=== PATIENT | female | born 1940 | race Caucasian/White ===

== ENCOUNTER → 2023-04-22 08:17 | Outpatient (REF) | payer MEDICARE, OTHER, SELFPAY ==
[2023-04-22 09:18] LABS: ALT (SGPT) 19 U/L (0-35); AST (SGOT) 31 U/L (14-36); Albumin 4.1 g/dl (3.5-5.0); Alkaline Phosphatase 58 U/L (38-126); Blood Urea Nitrogen 21 mg/dl (7-17); Calcium 9.6 mg/dl (8.4-10.2); Carbon Dioxide 31 mmol/L (22-30); Chloride 102 mmol/L (98-107); Glucose 97 mg/dl (70-99); HDL Cholesterol 60 mg/dl; LDL Cholesterol, Calculated 98 mg/dl; Potassium 4.4 mmol/L (3.5-5.1); Sodium 140 mmol/L (135-145); Total Bilirubin 0.7 mg/dl (0.2-1.3); Total Cholesterol 179 mg/dl (50-199); Total Protein 6.6 g/dl (6.3-8.2); Triglyceride 108 mg/dl (10-149); Very Low Density Lipoprotein 21 mg/dl (0-30); eGFR > 60.00
[2023-04-22 09:34] LABS: Vitamin D, 25-OH*** 121 ng/mL (30-80)
[2023-04-24 11:08] LABS: Creatine Phosphokinase 69 U/L (30-135)
== END ==
LOC: REG 08:17
PROVIDERS: ATTENDING PHYSICIAN Internal Medicine Geriatric Medicine
DX: E78.2 Mixed hyperlipidemia (principal); I10 Essential (primary) hypertension; Z00.00 Encounter for general adult medical examination without abnormal findings; Z13.31 Encounter for screening for depression
CPT/HCPCS: 36415; 80053; 80061; 82306; 82550

== ENCOUNTER → 2024-06-06 14:23 | Outpatient (REF) | payer MEDICARE, OTHER, SELFPAY | LOC: RAD 14:23 | PROVIDERS: ATTENDING PHYSICIAN Nurse Practitioner Primary Care; FAMILY PHYSICIAN Internal Medicine Geriatric Medicine | DX: M54.16 Radiculopathy, lumbar region (principal) | CPT/HCPCS: 72110 ==

== ENCOUNTER → 2024-07-04 08:39 | Outpatient (REF) | payer MEDICARE, OTHER, SELFPAY ==
[2024-07-04 09:34] LABS: % Basophils 0.7 % (0-2); % Eosinophils 1.3 % (0-6); % Immature Granulocytes 0.2 % (0-0.5); % Lymphocytes 39.6 % (20.5-51.1); % Monocytes 8.8 % (1.7-9.3); % Neutrophils 49.4 % (42.2-75.2); Absolute Eosinophils 0.1 10^3/uL (0-0.7); Absolute Lymphocytes 1.8 10^3/uL (1.2-3.4); Absolute Monocytes 0.4 10^3/uL (0.1-0.6); Absolute Neutrophils 2.2 10^3/uL (1.4-6.5); Hemoglobin 10.6 g/dL (12.0-16.0); Mean Corp Hgb Conc. 31.2 g/dL (33.0-37.0); Mean Corpuscular Hgb 19.7 pg (27.0-31.0); Mean Corpuscular Volume 63.3 fL (81.0-99.0); Mean Platelet Volume 9.2 fL (7.4-10.4); Nucleated Red Blood Cells % 0 %; Platelet Count 380 10^3/uL (130-400); Red Blood Cell Count 5.37 10^6/uL (4.20-5.40); Red Cell Dist. Width 17.9 % (11.5-14.5); White Blood Cell Count 4.5 10^3/uL (4.8-10.8)
[2024-07-04 11:23] LABS: ALT (SGPT) 39 U/L (0-35); AST (SGOT) 37 U/L (14-36); Albumin 4.3 g/dl (3.5-5.0); Alkaline Phosphatase 72 U/L (38-126); Blood Urea Nitrogen 15 mg/dl (7-17); Calcium 9.6 mg/dl (8.4-10.2); Carbon Dioxide 30 mmol/L (22-30); Chloride 102 mmol/L (98-107); Glucose 75 mg/dl (70-99); HDL Cholesterol 61 mg/dl; LDL Cholesterol, Calculated 111 mg/dl; Potassium 4.7 mmol/L (3.5-5.1); Sodium 139 mmol/L (135-145); Total Bilirubin 0.9 mg/dl (0.2-1.3); Total Cholesterol 196 mg/dl (50-199); Total Protein 6.9 g/dl (6.3-8.2); Triglyceride 123 mg/dl (10-149); Very Low Density Lipoprotein 24 mg/dl (0-30); eGFR > 60.00
[2024-07-04 12:59] LABS: Urine Albumin Negative (Neg - Trace); Urine Bilirubin Negative (Negative); Urine Character Clear (Clear); Urine Color Yellow; Urine Glucose Negative (Negative); Urine Ketone Negative (Negative); Urine Leukocyte Negative (Negative); Urine Nitrite Negative (Negative); Urine Occult Blood Negative (Negative); Urine Urobilinogen Negative (Neg - 1+)
== END ==
LOC: REG 08:39
PROVIDERS: ATTENDING PHYSICIAN Nurse Practitioner Primary Care; FAMILY PHYSICIAN Internal Medicine Geriatric Medicine
DX: K59.09 Other constipation (principal); Z00.00 Encounter for general adult medical examination without abnormal findings; E78.2 Mixed hyperlipidemia; I10 Essential (primary) hypertension; R13.10 Dysphagia, unspecified; K21.9 Gastro-esophageal reflux disease without esophagitis; R53.83 Other fatigue; I36.1 Nonrheumatic tricuspid (valve) insufficiency; R06.02 Shortness of breath; G60.9 Hereditary and idiopathic neuropathy, unspecified; R09.89 Other specified symptoms and signs involving the circulatory and respiratory systems
CPT/HCPCS: 36415; 80053; 80061; 81003; 84443; 85025

== ENCOUNTER → 2024-07-23 14:01 | Outpatient (REF) | payer MEDICARE, OTHER, SELFPAY ==
[2024-07-23 15:58] LABS: ALT (SGPT) 28 U/L (0-35); AST (SGOT) 35 U/L (14-36); Albumin 4.5 g/dl (3.5-5.0); Alkaline Phosphatase 63 U/L (38-126); Blood Urea Nitrogen 20 mg/dl (7-17); Calcium 9.5 mg/dl (8.4-10.2); Carbon Dioxide 30 mmol/L (22-30); Chloride 104 mmol/L (98-107); Glucose 93 mg/dl (70-99); Potassium 4.5 mmol/L (3.5-5.1); Sodium 138 mmol/L (135-145); Total Bilirubin 0.6 mg/dl (0.2-1.3); Total Protein 7.1 g/dl (6.3-8.2); eGFR > 60.00
[2024-07-25 14:52] LABS: Hepatitis B Surface Antigen Negative (Negative)
[2024-07-25 14:59] LABS: Hepatitis A IgM Antibody Negative (Negative)
[2024-07-25 15:10] LABS: Hepatitis B Core Ab, Total Negative (Negative); Hepatitis C Antibody Negative (Negative)
== END ==
LOC: WDC 14:01
PROVIDERS: Nurse Practitioner Primary Care; ATTENDING PHYSICIAN Internal Medicine Geriatric Medicine
DX: Z12.31 Encounter for screening mammogram for malignant neoplasm of breast (principal); Z13.820 Encounter for screening for osteoporosis; M85.89 Other specified disorders of bone density and structure, multiple sites; R74.8 Abnormal levels of other serum enzymes
CPT/HCPCS: 36415; 77063; 77067; 77080; 80053; 86704; 86709; 86803; 87340

== ENCOUNTER 2024-12-24 13:17 | Observation (INO) | payer MEDICARE, OTHER, SELFPAY ==
[2024-12-24] VITALS (18 sets, daily range): BP systolic 104–191; BP diastolic 45–86; BMI 22.0
[2024-12-24 09:59] LABS: Glucose - Point of Care 144 mg/dl (70-99)
[2024-12-24 10:17] LABS: Hematocrit 35.7 % (37.0-47.0); Hemoglobin 10.9 g/dL (12.0-16.0); Mean Corp Hgb Conc. 30.5 g/dL (33.0-37.0); Mean Corpuscular Volume 63.3 fL (81.0-99.0); Nucleated Red Blood Cells % 0 %; Platelet Count 322 10^3/uL (130-400); Red Cell Dist. Width 18.1 % (11.5-14.5)
[2024-12-24 10:30] LABS: INR 0.92; PT 12.6 Sec (11.4-14.6)
[2024-12-24 10:31] LABS: APTT 30.8 Sec (23.4-35.0)
--- NOTE | 2024-12-24 10:32 | ED.CVA ---
History of Present Illness
General
Chief Complaint: CVA/TIA Symptoms
Time Seen by Provider: 12/24/24 09:50
Onset of Stroke Symptoms
Onset of symptoms known: Yes
Date of onset of symptoms: 12/23/24
History of Present Illness
History of Present Illness:
84-year-old female with history of migraines presenting to the emergency department for left-sided headache. Patient reports the headache started last night around 7 PM, located behind her left eye. Denies any visual changes with the headache.
She reports that her typical migraines are in the back of her head. When she was talking to her , noted multiple episodes of difficulty getting her words out which continued into the morning. She also notes that about a week ago she had an
episode of very severe vertigo the last about 30 minutes. She denies focal weakness or sensory deficits. She denies chest pain or difficulty breathing. She denies any recent fall or trauma. She is not on any blood thinners. She took aspirin and
ibuprofen for the headache without significant relief. She denies any history of stroke. Denies any known history of high blood pressure. Denies medical complaints
Past History
Past History
ED Past Medical History: None
ED Past Surgical History: None
Phy Exam
Physical Exam
Physical Exam:
General: Well-appearing, no clinical signs of dehydration, nontoxic and in no acute distress
HEENT: protecting airway
Neck: appears supple
CV: Normal heart rate, regular rhythm
Resp: No accessory muscle use, no increased work of breathing, lungs clear to auscultation bilaterally
Abd: No distention
Extremities: No deformities, no swelling
Neuro: alert, mild dysmetria with jamzla-jb-qzvd testing on the right. No speech deficits
: deferred
Rectal: deferred
Psych: Normal affect
Skin: Intact
Scores
NIH Stroke Score
Level of Consciousness: 0 - Alert
LOC Questions: 0-Answers both correctly
LOC Commands: 0-Performs both correctly
Best Horizontal Gaze: 0-Normal
Visual Rogel: 0=Normal, no visual loss
Facial Palsy: 0=Normal, symmetrical
Motor - Right Arm: 0=No drift 10 seconds
Motor - Left Arm: 0=No drift 10 seconds
Motor - Right Le-No drift 5 seconds
Motor - Left Le-No drift 5 seconds
Limb Ataxia: 1-Present in one limb
Sensation: 0-Normal
Best Language: 0-No aphasia
Dysarthria: 0-Normal
Extinction and Inattention: 0-No abnormality
NIH Total Score:: 1
Course
Orders/Labs/Results
Orders:
Orders
12/24/24 09:50
CT Head & Neck Angio W/wo IV Urgent
Comment:
Reason For Exam: headache, expressive aphasis, HTN
12/24/24 09:59
Labetalol HCl [Trandate] 20 mg IV NOW STA
12/24/24 10:00
PTT Urgent
Prothrombin Time Urgent
12/24/24 10:06
Complete Blood Count/With Diff Urgent
Comprehensive Metabolic Panel Urgent
Erythrocyte Sed Rate Urgent
Comment: ADD ON
Ferritin Urgent
Comment: ADD ON
Folate Urgent
Comment: ADD ON
Iron Urgent
Magnesium Urgent
Comment: ADD ON
Total Iron Binding Urgent
Vitamin B12 Urgent
Comment: ADD ON
12/24/24 11:36
Consult Neurology [NEUROLOGY CONSULT] Urgent
Consulting Provider: Igor Martinez
Was physician already notified: Yes
12/24/24 12:55
Add On- LAB Urgent
Tests Added?: esr, iron tibc ferritin b12 folate
Admit/Transfer Patient As Directed
Co-Sign Provider:
Level of Care: Observation services
Assign to:: Telemetry
Physician / Group: stephie howe
Diagnosis: h/a garbled speech concern cva/tia htn urgency
Reason for Telemetry: CVA/TIA
Date to Stop Telemetry: 12/27/24
Time to Stop Telemetry: 11:00
Reason for Hospitalization: h/a garbled speech concern cva/tia htn urgency
Code Status As Directed
Resuscitation Status: Full Code
12/24/24 12:58
PRN Pain Medication Management As Directed
May give lesser potent ordered pain med per pt: Yes
preference::
Protocol:: Medication orders for pain may be administered in a
manner that supports deferring to patient preference
when the pt is:
- Requesting an ordered lesser potent pain medication.
Least to most potent pain medications are defined
as: acetaminophen < NSAID < tramadol < opioids
(morphine, oxycodone, hydromorphone).
- Requesting a lesser dose of the same medication IF
ORDERED.
- Requesting a less intrusive route of administration
if both routes are prescribed by the provider (PO <
IV).
12/24/24 13:00
Add On- LAB Urgent
Tests Added?: magnesium
12/27/24 11:00
DC Protocol for Telemetry ONCE
Abnormal Lab Results
12/24/24 12/24/24
09:57 10:06
RBC 5.64 H 10^6/uL
(4.20-5.40)
Hgb 10.9 L g/dL
(12.0-16.0)
Hct 35.7 L %
(37.0-47.0)
MCV 63.3 L fL
(81.0-99.0)
MCH 19.3 L pg
(27.0-31.0)
MCHC 30.5 L g/dL
(33.0-37.0)
RDW 18.1 H %
(11.5-14.5)
BUN 19 H mg/dl
(7-17)
Glucose 129 H mg/dl
(70-99)
POC Glucose 144 H mg/dl
(70-99)
12/24/24 10:06
12/24/24 10:06
Vital Signs
Initial and Last Documented VS:
Initial Vital Signs
Temp Pulse Resp BP Pulse Ox
97.6 F 64 18 191/82 99
12/24/24 09:46 12/24/24 09:46 12/24/24 09:46 12/24/24 09:46 12/24/24 09:46
Last Documented Vital Signs
Temp Pulse Resp BP Pulse Ox
97.6 F 53 13 164/60 99
12/24/24 09:46 12/24/24 12:04 12/24/24 11:00 12/24/24 11:33 12/24/24 12:06
MDM/Problems Addressed
MDM/Problems Addressed:
84-year-old female with history of of migraines presenting for left-sided headache and concern for intermittent aphasia. Vital signs on arrival are significant for high blood pressure.
On exam patient is resting comfortably, no acute distress. She is awake, alert, oriented. No present speech deficit, does note that she still having the headache. She declines medications for the headache. Patient's strength and sensation is
equal bilaterally, however does have some slight dysmetria with right sided tlfjnn-mk-xmvf testing. In the setting of headache, speech changes, uncontrolled high blood pressure, concern for CVA. Possible hypertensive emergency. Will control blood
pressure with labetalol and send patient for CT and CT angio. Patient is out of the window for TNK. NIH stroke scale at this time is a 1
11:35 -CT and CTA are negative for acute process. Blood pressure has improved with labetalol. Patient reports that her headache is slightly improved. In discussion with neurology, recommending MRI and echo. Plan for admission for stroke work-up
*Pulse Oximetry
SaO2: 99
Oxygen Mode of Delivery: Room air
Patient hypoxic: no
*Critical Care Note
Total Time (30-74mins, 75-104mins- exclusive of procedures): Not Applicable
ED Attending Note
-
Portions of this chart may have been created with voice recognition software.� Occasional wrong word or��sound alike� substitutions may have occurred due to the inherent limitations of voice recognition software.
Discharge Plan
Departure
Patient Disposition: Admit
Date of Disposition: 12/24/24
Time of Disposition: 12:00
Presentation/result/management discussed w/ accepting MD/DO: Hospitalist
Patient with high blood pressure during this ER visit?: Yes
Condition: Fair
Discharge Problem:
Stroke-like symptoms, Hypertension
Interventions
Interventions:
*Risk Screen - Suicide Last Done: 12/24/24 09:46
*General Assessment Last Done: 12/24/24 09:46
ED- Pulmonary Assessment Last Done: 12/24/24 12:06
ED- Neurological Assessment Last Done: 12/24/24 11:00
ED- Cardiac Assessment Last Done: 12/24/24 12:06
[2024-12-24] MEDS: TRANDATE 20 MG IV (10:34)
[2024-12-24 10:45] LABS: ALT (SGPT) 22 U/L (0-35); AST (SGOT) 30 U/L (14-36); Albumin 4.7 g/dl (3.5-5.0); Alkaline Phosphatase 71 U/L (38-126); Blood Urea Nitrogen 19 mg/dl (7-17); Calcium 9.4 mg/dl (8.4-10.2); Carbon Dioxide 26 mmol/L (22-30); Chloride 103 mmol/L (98-107); Estimated Creatinine Clearance 38 ml/min; Glucose 129 mg/dl (70-99); Potassium 4.1 mmol/L (3.5-5.1); Sodium 138 mmol/L (135-145); Total Protein 7.2 g/dl (6.3-8.2); eGFR > 60.00
--- NOTE | 2024-12-24 12:08 | W.PN.UPDATE ---
Update Note
Progress Note Update
This note serves as an addendum to the H&P by state farm agent Jocelyne Coto
HPI
84F HX Migraine, DLD ( Atorvastatin) HTN ( Amlodipine) HX vertigo ( Clonazepam) seen at ER:
- evaluation for for left-sided headache. started last night around 7 PM, located behind her left eye.
- denies any visual changes with the headache.
- reports that her typical migraines are in the back of her head.
- When she was talking to her , noted multiple episodes of difficulty getting her words out which continued into the morning.
- a week ago she had an episode of very severe vertigo the last about 30 minutes.
- Not on any thinners
She plat [employer] ball for 3 hrs yesterday
ROS:
- denies focal weakness or sensory deficits.
- denies chest pain or difficulty breathing.
- denies any recent fall or trauma.
- took aspirin and ibuprofen for the headache without significant relief.
- denies any history of stroke.
Relevant VS
12/24/24
09:46 12/24/24
11:33
Temp 97.6 F
Pulse 64
Resp Rate 18
Blood pressure 191/82 164/60
SaO2 99
Oxygen Mode of Delivery Room air
PE
Gen: nontoxic and in no acute distress, mildly anxious
HEENT: symmetric face , normal speech no temporoparietal tenderness
Neck: supple
Lungs:non labored breathing
Cor: RRR S1 s2
Abdomen:�benign
[employer]: NIH Total Score:: 1 for Limb Ataxia: 1-Present in one limb
MS:no edema
Psych: mildly anxious
Relevant Data
07/04/24 12/24/24
09:03 10:06
Hgb 10.6 L 10.9 L
MCV 63.3 L 63.3 L
Creatinine 0.8
eGFR > 60.00
Glucose [address] Head & Neck Angio W/wo IV
- CT of the Head without acute intracranial abnormality.
- Minimal atherosclerotic plaque in the right carotid bulb and proximal right internal carotid artery without hemodynamically significant stenosis.
- No demonstrable atherosclerotic narrowing within the proximal left carotid arterial system.
- No findings to suggest internal carotid artery or vertebral artery dissection bilaterally. Codominant vertebral arteries.
- Asymmetric appearance of 'soft tissue' in the region of the right cavernous sinus as compared to the left, likely not vascular in nature, possibly normal asymmetry, cannot exclude small extra-axial lesion such as a meningioma.
- Recommend elective MRI of Brain for more complete evaluation.
Last hospitalist admission:
ASSESSMENT & PLAN
Word finding difficulty , Unilateral Lt sided SCHWARZ with NIH Total Score:: 1 for Limb Ataxia: 1-Present in one limb
Denies temporoparietal tenderness
DDX: TIA vs Ophthalmic migraine
- Systolic HTN 190/82 on arrival - improved with IV Labetalol 20mg
- patient took full ASA LOSS PREVENTION SPECIALIST this morning
- DLP on Statin
- NEG HCT and CTA H & N
- No prior APL
- baby ASA daily
- c/w Atorvastatin 40 qpm
- check ESR
- ECHO
- Brain MRI
- Neuro consulted
Systolic HTN
Essential HTN
- c/w LOSS PREVENTION SPECIALIST Amlodipine
Clonazepam for HX Vertigo
HX Occipital migraine
DVT Px: SCD
Full code
OBS TLM
--- NOTE | 2024-12-24 12:24 | HPS.HSE ---
Family Physician
-
Family Physician: Gloria Puente
Chief Complaint
-
Headache, intermittent garbled speech
History of Present Illness
84-year-old female complaining of garbled speech yesterday 12/23/2024 approximately around 4 PM when she was at the gym trying to talk with the desk cashier receptionist. She reports she proceeded to drive home with her grandson made dinner did not have
any difficulty with preparing dinner. She then states at approximately 7 PM she started with a headache above her left eye She denies any visual changes with headache. Her states she had intermittent garbled speech before going to bed at
1030. She took Tylenol PM, ibuprofen and her clonazepam before bed and slept as normal. She woke up this morning with the headache across her frontal forehead along with episodic garbled speech but no other neurological deficits. She reports she
has history of migraines which are typically in her posterior head. She reports a week ago she had episode of severe vertigo lasting about 30 minutes. She reports taking aspirin 325 mg and ibuprofen 600 mg for the headache without any relief. She
currently states her headache is a 3 out of 10 across the frontal part of her forehead. She denies any visual disturbance or photosensitivity. She denies fever, chills, focal weakness, sensory deficits, chest pain, palpitations, cough, shortness
of breath, abdominal pain, nausea, vomiting, diarrhea, urinary symptoms. She reports she is very active walks 1 mile a day played Cash[employer] ball yesterday 12/23/2024 earlier in the day. She is past medical history of migraine headaches 10 years ago,
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
Medical History
Past Medical History
Past Medical History: Reports Other
Additional Past Medical History:
migraine headaches 10 years ago
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
benign tumor removal left axilla greater than 30 years ago
HTN
HLD
vertigo
GERD
Past Surgical History: Reports Other
Additional Past Surgical History:
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
benign tumor removal left axilla greater than 30 years ago
Social History
Tobacco: Non-smoker
Alcohol: None
Drug: None
Personal:
Living: With Family ()
Employment: Retired
Family History
Family History: Not pertinent
Allergies / Home Medications
Allergies reflects when Allergies were last updated in [facility].
Home Medications with original date entered in [facility]
Allergy/Medication List:
Allergies
Allergy/AdvReac Type Severity Reaction Status Date / Time
NKA - No Known Allergies Allergy Unknown Uncoded 12/24/24 09:49
Home Medications
amlodipine 5 mg tablet (Norvasc) 5 mg PO HS 12/24/24
ascorbic acid (vitamin C) 1,000 mg tablet (Vitamin C) 1,000 mg PO DAILY 12/24/24
atorvastatin 40 mg tablet (Lipitor) 40 mg PO QPM 12/24/24
calcium 600 mg-D3 25 mcg-mag ox 50 xc-cljkvj-wnldrs-zinc-collag tablet (Bow & Drape-Bone Strength) 1 tab PO DAILY 12/24/24
cholecalciferol (vitamin D3) 50 mcg (2,000 unit) capsule (Vitamin D3) 50 mcg PO MOWEFR 12/24/24
clonazepam 0.5 mg tablet 0.25 mg PO HS 12/24/24
coQ10 (ubiquinol) 100 mg capsule 100 mg PO DAILY 12/24/24
cyanocobalamin (vitamin B-12) 1,000 mcg tablet 1,000 mcg PO DAILY 12/24/24
diphenhydramine 25 mg-acetaminophen 500 mg tablet (Acetaminophen PM) 1 tab PO HS 12/24/24
famotidine 20 mg tablet (Pepcid) 20 mg PO BID 12/24/24
ibuprofen 400 mg tablet 400 mg PO BIDPRN PRN mild pain 10/14/25
magnesium oxide 400 mg PO DAILY 12/24/24
multivitamin with minerals (Hair,Skin and Nails tablet) 1 tab PO DAILY 12/24/24
omega 2-hif-mee-fish oil 1,000 mg (120 mg-180 mg) capsule (Fish Oil) 1 cap PO DAILY 12/24/24
quercetin 500 mg capsule 300 mg PO DAILY 12/24/24
zinc sulfate 50 mg zinc (220 mg) tablet 50 mg PO DAILY 12/24/24
Review of Systems
-
History Source: Patient and Family ( at bedside)
A 12 point ROS was completed and negative except as noted: Yes
Constitutional: Denies Fever or Chills
EENT: Denies Sore Throat or Runny Nose
Respiratory: Denies Cough or Trouble Breathing
Cardiac: Denies Chest Pain, Diaphoresis, Palpitations or Syncope
Abdomen/GI: Denies Abdominal Pain, Nausea, Vomiting, Diarrhea or Constipated
: Denies Dysuria, Frequency, Flank Pain, Incontinence, Difficulty Voiding or Urgency
Musculoskeletal: Denies Joint Pain or Edema
Skin: Denies Itching or Rash
Neurological: Reports Headache (Uncrossed frontal head starting on left) and Other (Reported intermittent garbled speech not appreciated on my exam); Denies Dizzy, Weakness or Numbness
Endocrine: Reports No Symptoms
Hematologic/Lymphatic: Reports No Symptoms
Psych: Reports Calm
Physical Exam
Vital Signs
Vital Signs
Temp Pulse Resp BP Pulse Ox
97.6 F 53 13 164/60 99
12/24/24 09:46 12/24/24 12:04 12/24/24 11:00 12/24/24 11:33 12/24/24 12:06
Physical Exam
General: Conversant and Pain (Headache 3 out of 10 left frontal head); No Fever, Chills or Sweats
HEENT: NormoCephalic, Anicteric, Moist mucous membranes, PERRLA (EOMs intact), [place] Conjunctivae, No Ptosis, Nose Appears Normal and Neck Nontender; No Pharyngeal Erythema
Respiratory: Clear; No Wheezes, Rales or Rhonchi
Cardiac: S1/S2 and Regular Rhythm; No Murmur, Rub, Gallop or Peripheral Edema
Breast: Deferred by me
GI: Soft, Non Tender, Non Distended, Normal Bowel Sounds and No Hepatosplenomegaly
Rectal: Deferred by Provider
Musculoskeletal: No Clubbing, No Cyanosis and No Edema
Skin: Warm, Dry and Rash
Neuro: AO x 3, No Motor Deficits, Nonfocal/grossly intact, Cranial Nerves Intact, No Sensory Deficits, DTR's Intact & Symmetrical and Other (No appreciated garbled speech on my exam); No Slurred Speech, Facial Droop, Tremors or Sedated
Psych: Calm
Laboratory Results
-
12/24/24 10:06
12/24/24 10:06
Laboratory Results
PT 12.6 Sec (11.4-14.6) 12/24/24 10:00
INR 0.92 12/24/24 10:00
APTT 30.8 Sec (23.4-35.0) 12/24/24 10:00
Total Bilirubin 0.8 mg/dl (0.2-1.3) 12/24/24 10:06
AST 30 U/L (14-36) 12/24/24 10:06
ALT 22 U/L (0-35) 12/24/24 10:06
Alkaline Phosphatase 71 U/L (38-126) 12/24/24 10:06
Data Reviewed
-
CT Scan: Report Reviewed by me
Lab Data: Labs Reviewed by me
Impression/Plan
-
Impression/plan:
Observation telemetry
#Headache with aphasia concern for CVA versus hypertensive urgency
#History of migraines greater than 10 years ago
#History of neck pain status post stem cell injection 4 years ago by [facility]
BP 191/82> 164/60 post IV labetalol 20 mg
- Consult neurology seen at bedside
- MRI brain with and without
-2D echo
- Check lipid profile, HgbA1c, check ESR
- Add aspirin 81 mg daily patient took aspirin 325 mg and Motrin 600 mg prior to arrival
-Continue Lipitor 40 mg every afternoon
-Tylenol as needed headache
- PT/OT/case management
CTA head and neck: no acute intracranial abnormality minimal right carotid bulb proximal right ICA atherosclerotic plaque no narrowing, no atherosclerotic narrowing of the proximal left carotid arterial system.
Asymmetric soft tissue region of the right cavernous sinus compared to left cannot extrude lesion such as meningioma
#HTN�urgency
BP 191/82> 164/60 post IV labetalol 20 mg
Will monitor
-Continue Norvasc 5 mg hs
-As needed labetalol 10 mg every 6 hours SBP> 180 Bowen >110
#Chronic microcytic anemia
Hgb 10.9, MCV 63.3 appears near baseline per patient
-Check iron panel, B12, folate
-Continue vitamin B12 daily
#HLD
Continue Lipitor 40 mg every afternoon, fish oil
-Check lipid profile
#GERD
-Continue Pepcid 20 mg twice daily
#History of vertigo
-Continue clonazepam 0.25 mg at bedtime
#Hypomagnesemia
-Check mag level
-Continue Mag-Ox 400 mg daily check mag level
DVT prophylaxis
SCDs
Full code
[2024-12-24 13:32] LABS: Iron 134 ug/dl (37-170); Magnesium 2.0 mg/dl (1.6-2.3)
[2024-12-24 13:41] LABS: Total Iron Binding Capacity 313 ug/dl (265-497)
--- NOTE | 2024-12-24 13:52 | CM ---
chart reviewed and met with pt and at ED bedside. WHITAKER reviewed and signed at 13:30 pm
Lives in a 2 story home with 5 [address], drives and plays pickle ball 2-3 hours at a time
No DME use
supportive
PCP Dr. Gloria Puente
RX plan : [employer]
Pharmacy; [facility]
Provided [facility] card
no hx of VN nor SNF use
CM will continue to follow up for any dcp needs
[2024-12-24 14:42] LABS: Ferritin 29.6 ng/ml (11.1-264.0)
[2024-12-24 15:13] LABS: Folate > 20.0 ng/ml (2.76-20); Vitamin B12 > 1000 pg/ml (239-931)
[2024-12-24] MEDS: TYLENOL 650 MG PO (18:26)
--- NOTE | 2024-12-24 18:54 | PTCARENOTE ---
Rn design coordinator- Patient's admission assessment completed remotely by phone.
[2024-12-24] MEDS: PEPCID 20 MG PO (20:07)
--- NOTE | 2024-12-24 21:37 | CON.NEURO4 ---
Consultation - Neurology 4
-
CONSULTING PHYSICIAN: Igor Martinez MD
REFERRING PHYSICIAN: Georgia Levin DO
DICTATED BY: Igor Martinez MD
DATE/TIME OF REQUEST: 12/24/2024
DATE/TIME OF CONSULTATION: 12/24/2024
Reason for Consultation: Speech difficulty
Assessment and Plan:
The patient is an 84 years old female with history of migraines who presented with to the ER with complaint of left-sided headache along with speech difficulty that started at around 7 PM last night. According to the patient's , the
patient's speech difficulty has been fluctuating, however she has never returned to her baseline since the symptoms started at around 7 PM last night. The patient says that she has difficulty in getting the words out. The patient denies any focal
weakness or any visual problem. The patient was not a candidate for TNK as she was outside the time window.
. CT of the head did not show acute intracranial abnormality
. The plan is to get MRI of the brain without contrast
. Echocardiogram
. The patient is going to be on the stroke pathway
. Aspirin 81 mg daily
. Plavix 75 mg daily
. Atorvastatin 40 mg daily
The patient has speech difficulty which started with headache above the left eye, in this patient who has a history of migraines, but the patient says that this headache is different from her typical migraine headaches. Will get MRI of the brain
without contrast to rule out a stroke.
I had a detailed discussion with the patient and her regarding the assessment and the management plan, and they verbalized understanding of our discussion.
Will follow.
History of Present Illness:
The patient is an 84 years old female with history of migraines who presented with to the ER with complaint of left-sided headache along with speech difficulty that started at around 7 PM last night. According to the patient's , the
patient's speech difficulty has been fluctuating, however she has never returned to her baseline since the symptoms started at around 7 PM last night. The patient says that she has difficulty in getting the words out. The patient denies any focal
weakness or any visual problem. The patient was not a candidate for TNK as she was outside the time window.
Past Medical History: Migraine, hypertension and vertigo.
Review of Systems:
The 10 point review systems was negative aside from as given in the history of present illness above.
Neurologic Examination:
The patient is alert and oriented x 3
The patient has mild expressive aphasia
The cranial nerves II to XII are grossly intact
The motor strength is 5 out of 5 bilaterally in the upper and lower extremities
The sensations are intact bilaterally
The cerebellar exam does not show limb ataxia
Gait examination was deferred
[2024-12-24] MEDS: BENADRYL 25 MG PO (22:47)
[2024-12-24] MEDS: TYLENOL 500 MG PO (22:47)
[2024-12-24] MEDS: KLONOPIN 0.25 MG PO (22:47)
[2024-12-24] MEDS: NORVASC 5 MG PO (22:47)
[2024-12-25 03:28] VITALS: BP 128/59
[2024-12-25 07:00] VITALS: BP 155/64
[2024-12-25] MEDS: VITAMIN C 1000 MG PO (08:03)
[2024-12-25] MEDS: VITAMIN B-12 1000 MCG PO (08:04)
[2024-12-25] MEDS: MAGNESIUM OXIDE 400 MG PO (08:04)
[2024-12-25] MEDS: ZINC 50 MG PO (08:05)
[2024-12-25] MEDS: THERAGRAN 1 TABLET PO (08:05)
[2024-12-25] MEDS: PEPCID 20 MG PO (08:05)
[2024-12-25] MEDS: LOW STRENGTH ASPIRIN 81 MG PO (08:05)
[2024-12-25 08:37] LABS: HDL Cholesterol 45 mg/dl; LDL Cholesterol, Calculated 98 mg/dl; Very Low Density Lipoprotein 30 mg/dl (0-30)
--- NOTE | 2024-12-25 09:59 | W.PN.HOSP.TC ---
Today's Communication/Plan
-
dc if ok with neurology
Assessment / Plan
Assessment / Plan
Physical Exam
General: Conversant and not in pain or distress.
HEENT: Normocephalic, Anicteric, Moist mucous membranes, PERRLA (EOMs intact), [place] Conjunctivae, No Ptosis, Nose Appears Normal and Neck Nontender;
Respiratory: Clear; No Wheezes, Rales or Rhonchi
Cardiac: S1/S2 and Regular Rhythm;
GI: Soft, Non Tender, Non Distended, Normal Bowel Sounds
Musculoskeletal: No Clubbing, No Cyanosis and No Edema
Skin: Warm, Dry and Rash
Neuro: AO x 3, No Motor Deficits, Nonfocal/grossly intact, No Slurred Speech, Tremors or Sedated. Mild left facial droop (was told about it by her daughter in the past)
Psych: Calm
# Suspect garbled speech due to migraine
MRI no acute stroke
She had Headache with aphasia
#History of migraines greater than 10 years ago
#History of neck pain status post stem cell injection 4 years ago by [facility]
Seen by neurology on admission, started on Plavix/ aspirin/ statin/, LDL 98, high vitamin B12 & folate, will ask neurology for recommendations.
HGB A1C 5.3
#HTN�urgency
resolved, c/w home medications
#Chronic microcytic anemia
Normal iron studies, likely anemia of chronic disease, to f/w PCP
Hgb 10.9, MCV 63.3 appears near baseline per patient
- High B12, folate
-Continue vitamin B12 daily
#HLD
Continue Lipitor 40 mg every afternoon, fish oil
LDL at 98
#GERD
-Continue Pepcid 20 mg twice daily
#History of vertigo
-Continue clonazepam 0.25 mg at bedtime
#hx of Hypomagnesemia
-Continue Mag-Ox 400 mg daily
DVT prophylaxis
SCDs
Full code
Total discharge time spent to see the patient, examine the patient, review data and lab result, discuss discharge plan with patient, nursing staff around 65 minutes
Anticipated Discharge: Today
Subjective/Interval History
-
Date of Service: December 25, 2024
She feels normal, speech is normal for her
no headache
No chest pain
Objective Data
-
Vital Signs:
Vital Signs
Temp Pulse Resp BP Pulse Ox
97.8 F 61 16 155/64 96
12/25/24 07:00 12/25/24 07:00 12/25/24 07:00 12/25/24 07:00 12/25/24 07:00
I&O
12/24/24 12/25/24 12/26/24
06:59 06:59 06:59
Intake Total 480 / 480
Balance 480 / 480
[2024-12-25 10:40] LABS: Glycohemoglobin (HgbA1c) 5.3 % (4.0-5.6)
[2024-12-25 10:42] VITALS: BP 124/64; PULSE 65; O2SAT 95
[2024-12-25 11:00] VITALS: BP 160/77
[2024-12-25] MEDS: PLAVIX 75 MG PO (12:05)
[2024-12-25 13:30] VITALS: BP 158/61
--- NOTE | 2024-12-25 13:37 | W.DCSUMMARY ---
Addendum entered and electronically signed by Sammy Coronado MD 12/25/24 15:07:
Correction
Date of admission: 12/24/24
Date of discharge: 12/25/24
Original Note:
Discharge Summary
Discharge Data
Date of Admission: 12/22/24
Date of Discharge: 12/25/24
-
Pending Results: No
Hospital Course
84 years old female with history of migraines who presented with to the ER with complaint of left-sided headache along with speech difficulty. The patient denied any focal weakness or any visual problem. The patient was not a candidate for TNK as
she was outside the time window. She was noted to have elevated blood pressure. She did not have leukocytosis or fever. Scan of the head did not show acute abnormality. Scan of the head and neck with contrast did not show carotid
artery/vertebral artery dissection/significant stenosis. Patient was seen by neurologist. MRI did not show acute infarct, was positive for mild chronic microvascular white matter ischemic disease. Patient was evaluated by speech and physical
therapy. She did not have skilled needs. Patient felt better and back to normal. Patient reported that he was not taking her amlodipine daily. She was counseled to take her medications and monitor blood pressure at home. She had echocardiogram
that was unremarkable. She had normal sinus rhythm on teletypesetter monitor. Neurologist recommended dual antiplatelet therapy with the Plavix and aspirin for 21 days then to continue with aspirin only. Recommended to increase Lipitor to 80 mg as LDL
was 98. Neurologist recommended to treat her condition as TIA. She was advised to follow-up with neurologist in office in 1 month. Patient remained hemodynamically stable. She verbalized understanding to discharge instruction including
compliance to blood pressure medication. She was offered to contact her family for questions or instructions but she declined. She was discharged in a stable condition.
Discharge Plan
-
Patient Disposition: Home (Routine Discharge)
Discharge Diagnosis/Procedures: You presented with left-sided headache along with speech difficulty.
You were seen by neurologist. You had CT scan and MRI study. No acute stroke. Cannot rule out TIA. Recommend to take aspirin and Plavix for 21 days then continue with aspirin. Increase dose of Lipitor to 80 mg. LDL was 98, recommendation less
than 70.
Potential side effects of aspirin and Plavix include the bleeding, bruising. Avoid falls
Potential side effects of Lipitor include elevated liver enzyme, muscle weakness/myositis. Follow-up with your primary care doctor after discharge in 1 to 2 weeks.
- Echocardiogram showed Normal left ventricular size and systolic function without regional wall motion abnormalities. Estimated left ventricular ejection fraction is 60 to 65%. Normal diastolic function. Normal right ventricular size and systolic
function. No significant valvular abnormalities. No pericardial effusion. No significant changes when compared to prior echocardiogram from 2018.
- High blood pressure/hypertension. Were advised to take amlodipine daily. Call your primary care doctor if your blood pressure is uncontrolled/high blood pressure > 140/90
Follow-up with neurology in 1 month
Diet: As tolerated and Low Fat
Referrals:
Gloria Puente CRNP [Family Provider, Internal Medicine] - in one to two weeks
Igor Martinez MD [Active, Neurology] - in one month
Prescriptions:
New
atorvastatin 80 mg Tablet
80 mg PO QPM Qty: 30 0RF
clopidogrel 75 mg Tablet
75 mg PO DAILY Qty: 21 0RF
aspirin 81 mg Tablet,Chewable
81 mg PO DAILY Qty: 30 0RF
Continued
ascorbic acid (vitamin C) [Vitamin C] 1,000 mg Tablet
1,000 mg PO DAILY
clonazepam 0.5 mg Tablet
0.25 mg PO HS
cyanocobalamin (vitamin B-12) 1,000 mcg Tablet
1,000 mcg PO DAILY
amlodipine [Norvasc] 5 mg Tablet
5 mg PO HS
zinc sulfate 50 mg zinc (220 mg) Tablet
50 mg PO DAILY
famotidine [Pepcid] 20 mg Tablet
20 mg PO BID
ibuprofen 400 mg Tablet
400 mg PO BIDPRN PRN (Reason: mild pain)
Hair,Skin and Nails Tablet
1 tab PO DAILY
diphenhydramine-acetaminophen [Acetaminophen PM] 25-500 mg Tablet
1 tab PO HS
cholecalciferol (vitamin D3) [Vitamin D3] 50 mcg (2,000 unit) Capsule
50 mcg PO MOWEFR
omega 2-ers-caq-fish oil [Fish Oil] 1,000 (120-180) mg Capsule
1 cap PO DAILY
coQ10 (ubiquinol) 100 mg Capsule
100 mg PO DAILY
magnesium oxide 400 mg magnesium Tablet
400 mg PO DAILY
quercetin 500 mg Capsule
300 mg PO DAILY
Joint Health-Bone Strength 600 mg-25 mcg- 50 mg Tablet
1 tab PO DAILY
Discontinued
atorvastatin [Lipitor] 40 mg Tablet
40 mg PO QPM
Discharge Orders:
Discharge Patient (As Directed); Ordered 12/25/24
Ordered By: Sammy Coronado
Discharge Date and Time
Print Language: TAJIK
[2024-12-25] MEDS: NORVASC 5 MG PO (13:56)
[2024-12-25] MEDS: FLUZONE HIGH-DOSE 2025-26 0.5 ML IM (15:12)
[2024-12-25 15:15] VITALS: BP 134/69
--- NOTE | 2024-12-25 15:27 | CM ---
Pt discharge with no needs. Will be taken home by her via car.
== END 2024-12-25 15:40 | disposition home or self-care (01) ==
LOC: 4 EAST ACU 13:17
PROVIDERS: Clinical Nurse Specialist Family Health; ADMITTING PHYSICIAN Internal Medicine; ATTENDING PHYSICIAN Internal Medicine; CONSULT PHYSICIAN Psychiatry & Neurology Neurology; EMERGENCY PHYSICIAN Student in an Organized Health Care Education/Training Program; FAMILY PHYSICIAN Nurse Practitioner Primary Care
DX: R47.01 Aphasia (principal); I10 Essential (primary) hypertension; I16.0 Hypertensive urgency; E78.5 Hyperlipidemia, unspecified; D50.9 Iron deficiency anemia, unspecified; K21.9 Gastro-esophageal reflux disease without esophagitis; E83.42 Hypomagnesemia; G43.909 Migraine, unspecified, not intractable, without status migrainosus; Z79.02 Long term (current) use of antithrombotics/antiplatelets; Z79.82 Long term (current) use of aspirin; Z79.899 Other long term (current) drug therapy; Z23 Encounter for immunization
CPT/HCPCS: 70496; 70498; 70553; 80053; 80061; 82607; 82728; 82746; 82962; 83036; 83540; 83550; 83735; 85025; 85610; 85652; 85730; 90662; 93306; 96374; 97162; 99285; A9575; G0008; G0378; Q9967

== ENCOUNTER → 2025-02-04 12:42 | Outpatient (REF) | payer MEDICARE, OTHER, SELFPAY ==
[2025-02-04 14:28] LABS: Hematocrit 31.6 % (37.0-47.0); Hemoglobin 9.7 g/dL (12.0-16.0); Mean Corp Hgb Conc. 30.7 g/dL (33.0-37.0); Mean Corpuscular Volume 64.6 fL (81.0-99.0); Nucleated Red Blood Cells % 0 %; Platelet Count 286 10^3/uL (130-400); Red Cell Dist. Width 16.6 % (11.5-14.5)
[2025-02-04 15:35] LABS: ALT (SGPT) 26 U/L (0-35); AST (SGOT) 32 U/L (14-36); Albumin 4.2 g/dl (3.5-5.0); Alkaline Phosphatase 68 U/L (38-126); Blood Urea Nitrogen 21 mg/dl (7-17); Calcium 9.1 mg/dl (8.4-10.2); Carbon Dioxide 28 mmol/L (22-30); Chloride 97 mmol/L (98-107); Glucose 77 mg/dl (70-99); Potassium 4.2 mmol/L (3.5-5.1); Sodium 131 mmol/L (135-145); Total Protein 6.7 g/dl (6.3-8.2); eGFR > 60.00
[2025-02-04 15:38] LABS: C-Reactive Protein < 5.00 mg/L (0.0-10.00)
[2025-02-04 16:33] LABS: Vitamin B12 976 pg/ml (239-931)
[2025-02-07 10:13] LABS: Iron 93 ug/dl (37-170)
[2025-02-07 10:23] LABS: Total Iron Binding Capacity 308 ug/dl (265-497)
== END ==
LOC: RAD 12:42
PROVIDERS: ATTENDING PHYSICIAN Student in an Organized Health Care Education/Training Program; FAMILY PHYSICIAN Nurse Practitioner Primary Care
DX: R51.9 Headache, unspecified (principal); G60.9 Hereditary and idiopathic neuropathy, unspecified; R42 Dizziness and giddiness; Z86.73 Personal history of transient ischemic attack (TIA), and cerebral infarction without residual deficits
CPT/HCPCS: 36415; 70487; 80053; 82607; 82784; 83521; 84155; 84165; 85025; 85652; 86140; 86334; 86618; Q9967

== ENCOUNTER → 2025-02-12 07:53 | Outpatient (REF) | payer MEDICARE, OTHER, SELFPAY ==
[2025-02-12 09:32] LABS: Cortisol, Random 15.9 ug/dl
[2025-02-12 12:05] LABS: Urine Character Clear (Clear)
[2025-02-12 12:50] LABS: Blood Urea Nitrogen 15 mg/dl (7-17); Calcium 9.4 mg/dl (8.4-10.2); Carbon Dioxide 31 mmol/L (22-30); Chloride 102 mmol/L (98-107); Glucose 88 mg/dl (70-99); Potassium 4.4 mmol/L (3.5-5.1); Sodium 136 mmol/L (135-145); eGFR > 60.00
[2025-02-12 12:59] LABS: Total Iron Binding Capacity 316 ug/dl (265-497)
[2025-02-14 13:19] LABS: SSA 52 (Ro)(ENA) Ab, IgG 19 AU/mL (0-40); SSA 60 (Ro)(ENA) Ab, IgG 0 AU/mL (0-40); SSB (La)(ENA) Ab, IgG 0 AU/mL (0-40)
== END ==
LOC: REG 07:53
PROVIDERS: ATTENDING PHYSICIAN Student in an Organized Health Care Education/Training Program; FAMILY PHYSICIAN Nurse Practitioner Primary Care
DX: D64.9 Anemia, unspecified (principal); E87.1 Hypo-osmolality and hyponatremia; K11.7 Disturbances of salivary secretion
CPT/HCPCS: 36415; 80048; 81003; 82024; 82533; 83550; 83930; 83935; 84300; 86235